=== PATIENT | female | born 1980 | race Caucasian/White ===

== ENCOUNTER 2020-01-27 08:21 | Day surgery (SDC) | payer OTHER ==
[2020-01-24 11:21] LABS: HEMATOCRIT 38.7 % (36.0-47.0); HEMOGLOBIN 13.1 g/dL (12.0-15.5); MEAN CORPUSCULAR HEMOGLOBIN 30.1 pg (27.0-33.4); MEAN CORPUSCULAR HGB CONC 33.8 g/dL (32.0-36.0); MEAN CORPUSCULAR VOLUME 89 fl (80-97); PLATELET COUNT 219 10^3/uL (150-450); RED BLOOD COUNT 4.34 10^6/uL (3.72-5.28); RED CELL DISTRIBUTION WIDTH 13.1 % (11.5-14.0); WHITE BLOOD COUNT 6.9 10^3/uL (4.0-10.5)
[2020-01-24 11:27] LABS: APPEARANCE,URINE CLEAR; BILIRUBIN,URINE NEGATIVE (NEGATIVE); COLOR,URINE YELLOW; GLUCOSE, URINE NEGATIVE (NEGATIVE); KETONES,URINE NEGATIVE (NEGATIVE); LEUKOCYTE ESTERASE,URINE NEGATIVE (NEGATIVE); NITRITE,URINE NEGATIVE (NEGATIVE); PROTEIN,URINE NEGATIVE (NEGATIVE); URINE SPECIFIC GRAVITY 1.024; UROBILINOGEN,URINE NEGATIVE mg/dL (<2.0)
[~2020-01-27 08:21] MED LIST: LACTATED RINGERS 1000 ML IV PRN; LIDOCAINE 0.5% INJ-PF (5 MG/ML) 50 ML SDV SUBCUT PRN
[2020-01-27] MEDS ORDERED: FENTANYL CITRATE INJ/PF 100 MCG/2 ML AMPUL ONE (09:48)
[2020-01-27] MEDS ORDERED: MIDAZOLAM 2 MG/2 ML INJ ONE (09:48)
[2020-01-27] MEDS ORDERED: DEXAMETHASONE SOD PHOSPHATE INJ 4 MG/1 ML VIAL ONE (09:48)
[2020-01-27] MEDS ORDERED: PROPOFOL INJ 200 MG/20 ML VIAL IV ONE (09:48)
[2020-01-27] MEDS ORDERED: ONDANSETRON HCL INJ/PF 4 MG/2 ML SDV ONE (09:48)
[2020-01-27] MEDS ORDERED: LIDOCAINE 2% INJ-PF (100 MG/5 ML) SYRINGE ONE (10:02)
[2020-01-27] MEDS ORDERED: FENTANYL CITRATE INJ/PF 100 MCG/2 ML AMPUL IV PRN ×3 (10:23)
[2020-01-27] MEDS ORDERED: MEPERIDINE HCL/PF INJ 25 MG/1 ML DISP.SYRIN IV PRN (10:23)
[2020-01-27] MEDS ORDERED: MORPHINE SULFATE 10 MG/ML INJ IV PRN (10:23)
[2020-01-27] MEDS ORDERED: PROMETHAZINE HCL INJ 25 MG/1 ML VIAL IV PRN (10:23)
[2020-01-27] MEDS ORDERED: DIPHENHYDRAMINE HCL 50 MG/ML VIAL IV PRN (10:23)
--- NOTE | 2020-01-27 11:21 | Operative Report ---
Operative Report DATE OF SURGERY: 01/27/20 PREOPERATIVE DIAGNOSIS: Undesired fertility abnormal uterine bleeding desire for IUD removal POSTOPERATIVE DIAGNOSIS: Same OPERATION: Laparoscopic tubal cauterization hysteroscopy with NovaSure ablation IUD removal SURGEON: CRISTHIAN TREJO ANESTHESIA: GA TISSUE REMOVED OR ALTERED: Endometrial curettings COMPLICATIONS: None ESTIMATED BLOOD LOSS: 20 cc INTRAOPERATIVE FINDINGS: Normal uterus tubes and ovaries, normal endometrial canal with proliferative endometrium PROCEDURE: Patient was taken to the operating room prepared and draped in normal sterile fashion in dorsolithotomy position. Under sterile conditions and in and out cath was performed of approximately 30 cc of clear urine. A sterile speculum was then placed into the vagina the cervix was grasped with a single-tooth tenaculum on the anterior lip. A Hulka clamp was placed to the cervix for uterine manipulation without difficulty. The tenaculum and speculum were then removed. Change in attention was turned to the upper portion of the case where the umbilical skin incision was made. A varies needle was introduced through this incision and the abdomen was inflated with approximately 2 L of CO2 gas. Needle was removed and a 5 mm port was placed through the incision. The camera was introduced and the patient was placed in Trendelenburg with the above findings noted. Another 5 mm port was placed in the left lower quadrant. A blunt probe was introduced through this port and the bowel was swept away. A Kleppinger was then introduced through that port and beginning with the left fallopian tube the left fallopian tube was cauterized with approximately 3-1/2 cm. We switched to a LigaSure device as the Kleppinger device was not occluding the the tissue and the LigaSure was used to complete the rest of the case carefully occluding at least 3 cm of end of fallopian tube on either side the occlusion was felt to be more than adequate. Repeated on the right fallopian tube without difficulty. Then removed and the abdomen was deflated through the umbilical port. Port sites were closed with 4-0 Vicryl. We then began with the lower portion of the case where a sterile speculum was placed into the vagina and the cervix was transected with a uterine dilator sounding the uterus to approximately 8 cm I estimated a cervical length of approximately 2 cm for the rest of the endometrial cavity was approximately 6 cm the cervix was dilated to accommodate an 8 mm device. The hysteroscope was then introduced and the above findings were noted of some proliferative endometrium therefore some endometrial curettings were obtained using a sharp curette. the instruments were removed. NovaSure device was then placed without difficulty the settings were set at 6 for Cavity length and 2-1/2 for cavity width and the ablation was begun after testing the integrity of the device the ablation lasted approximately 90 seconds the device was removed carefully inspected and found to have a good jose luis scope was introduced into the cavity once again and noted that there was a good jose luis throughout the 360 degrees of the cavity . to recovery stable condition sponge lap and needle counts were correct x2..
[2020-01-27] MEDS ORDERED: RINGERS SOLUTION,LACTATED 1,000 ML IV PRN (11:54)
[2020-01-27] MEDS ORDERED: KETOROLAC TROMETHAMINE INJ/PF 30 MG/1 ML SDV IV PRN (11:54)
[2020-01-27] MEDS ORDERED: IBUPROFEN 800 MG TABLET PO PRN (11:54)
[2020-01-27] MEDS ORDERED: OXYCODONE-ACETAMINOPHEN 5-325 MG TABLET PO PRN ×2 (11:54)
[2020-01-27 13:01] VITALS: BP 116/74
[2020-01-27] MEDS ORDERED: NEOSTIGMINE METHYLSULFATE 10 MG/10 ML VIAL ONE (13:54)
[2020-01-27] MEDS ORDERED: SUCCINYLCHOLINE CHLORIDE INJ 200 MG/10 ML VIAL ONE (13:54)
[2020-01-27] MEDS ORDERED: GLYCOPYRROLATE 1 MG/5 ML VIAL ONE (13:54)
[2020-01-27] MEDS ORDERED: ROCURONIUM BROMIDE INJ 50 MG/5 ML VIAL IV ONE (13:54)
--- NOTE | 2020-02-03 14:06 | Discharge Summary ---
Discharge Summary (SDC) - Discharge Final Diagnosis: undesired fertility, abnormal uterine bleeding Date of Surgery: 01/27/20 Discharge Date: 01/27/20 Condition: Good Forms: ASU Anesthesia D/C Instruction, Discharge POC-Surgical Service Prescriptions: Oxycodone HCl/Acetaminophen [Percocet 5-325 mg Tablet] 1 tab PO Q4HP PRN #20 tablet PRN Reason: Ibuprofen [Motrin 800 mg Tablet] 800 mg PO NOW PRN #60 tablet PRN Reason: Referrals: CRISTHIAN TREJO MD [ACTIVE STAFF] - (Follow up as scheduled) Discharge Diet: As Tolerated Respiratory Treatments at Home: Deep Breathing/Coughing Discharge Activity: Activity As Tolerated, Pelvic Rest, No tub bath Home Care Assistance: None Needed Report the Following to Your Physician Immediately: Shortness of Breath, Nausea, Vomiting, Increase in Pain, Fever over 101 Degrees, Unusual Bleeding
== END 2020-01-27 12:55 | disposition home or self-care (01) ==
LOC: OROUT 08:21
PROVIDERS: ATTEND Obstetrics & Gynecology
DX: Z30.2 Encounter for sterilization (principal); N93.9 Abnormal uterine and vaginal bleeding, unspecified; Z30.432 Encounter for removal of intrauterine contraceptive device
CPT/HCPCS: 58579; 58563; 58670; 36415; 85027; 87635; 81005; 81025; 88305 ×2; 00851; J2250; J3490 ×2; J1100; J3010; J2001; J2710; J0330; J2405; J2704; C9803; 851